=== PATIENT | female | born 1965 | race Caucasian/White ===

== ENCOUNTER 2021-12-17 04:12 | Outpatient (REF) | payer OTHER, SELFPAY ==
[2021-12-17 04:28] LABS: HCT 40.1 % (36.0-46.0); HGB 12.7 g/dL (11.2-15.7); MCH 28.9 pg (27.0-33.0); MCHC 31.7 % (32.0-36.0); MCV 91 fL (80-95); MPV 10.7 fL (8.0-11.0); Platelet Count 331 10^3/uL (130-400); RBC 4.39 10^6/uL (3.93-5.22); RDW 13.2 % (11.7-14.6); RDW-SD 44.9 fL; WBC 7.98 10^3/uL (4.4-10.8)
[2021-12-17 04:43] LABS: ALT 19 U/L (14-59); AST 14 U/L (15-37); Albumin 3.7 g/dL (3.4-5.0); Alkaline Phosphatase 73 U/L (46-116); Anion Gap 6.9 mmol/L (3-11); BUN 23 mg/dL (7-18); Bilirubin, Total 0.2 mg/dL (0.2-1.0); CO2 31.1 mmol/L (21.0-32.0); CREATININE 0.7 mg/dL (0.55-1.02); Calcium 9.4 mg/dL (8.5-10.1); Calculated LDL 141 mg/dL (<100); Chloride 103 mmol/L (98-107); Cholesterol 235 mg/dL (<200); Estimated GFR 100.81 (mL/min/1.73m2); Glucose 87 mg/dL (74-106); HDL Cholesterol 69 mg/dL (40-60); Potassium 4.4 mmol/L (3.5-5.1); Sodium 141 mmol/L (136-145); TSH 0.23 uIU/mL (0.36-3.74); Total Protein 7.2 g/dL (6.4-8.2); Triglyceride 128 mg/dL (<150)
== END 2021-12-17 04:13 | disposition home or self-care (01) ==
LOC: NCHCN 04:12
PROVIDERS: Visit Provider Registered Nurse
DX: Z00.00 Encounter for general adult medical examination without abnormal findings (principal)
CPT/HCPCS: 80053; 80061; 85027; 84443

== ENCOUNTER 2021-12-28 11:54 | Outpatient (REF) | payer OTHER, SELFPAY ==
--- NOTE | 2021-12-28 10:15 | PAPFT_PTH ---
PATIENT: Cherry Smyth LOC: [facility] U#:[id number] AGE/SX: 56/F ROOM: RE12/28/[address]: Ivonne Downs : 1965 BED: DIS: 12/28/2021 SPEC #: [id number] RECD: 12/28/21 17:48 STATUS: SHARAD REQ #: [id number] RAMON: 12/28/21 10:[address]: Ivonne Downs DEPT: [facility] Cytology RECD BY: Yuly Sanchez ENTERED: 12/28/21 17:48 SP TYPE: PAPFT DYLON DR: Unknown,Unknown Tissues: 1 - CX/ENDOCX FOR PAP SMEARS Procedures: PAP THIN PREP/[facility] Screening HPV DNA PROBE Comments: [id number]
== END 2021-12-28 11:55 | disposition home or self-care (01) ==
LOC: NCHCN 11:54
PROVIDERS: Visit Provider Registered Nurse
DX: Z12.4 Encounter for screening for malignant neoplasm of cervix (principal); Z11.51 Encounter for screening for human papillomavirus (HPV)
CPT/HCPCS: 88142; 87624

== ENCOUNTER 2022-06-08 15:30 | Outpatient (REF) | payer OTHER, SELFPAY ==
[2022-06-08 15:03] LABS: TSH 0.77 uIU/mL (0.36-3.74)
== END 2022-06-08 15:31 | disposition home or self-care (01) ==
LOC: NCHCN 15:30
PROVIDERS: Visit Provider Registered Nurse
DX: E03.9 Hypothyroidism, unspecified (principal); R73.09 Other abnormal glucose
CPT/HCPCS: 83036; 84443

== ENCOUNTER 2023-05-21 14:42 | Outpatient (REF) | payer OTHER, SELFPAY ==
--- OUTSIDE RECORDS SUMMARY | 2023-05-21 14:45 | XMS_ITS | CCD ---
Author Name Unknown Address [address] [place] [address] [phone] Organization Unknown Address [address] [place] [address] [id number] Care Team Providers Care Wharfmaster Name Role Phone LILLIANA SOUTH Attending Physician [phone] JOVITA WEST Er Physician 3 [phone] SKYLER Baum Registered Nurse [phone] Vital Signs Vital Sign Value Unit Date/Time Recent/Initial ? BMI (Body Mass Index) 28.17 kg/m^2 01/04/2022 15: 05 Initial VS Weight Measured 165 lbs 01/04/2022 15:05 Ini tial VS Height 64.17 in 01/04/2022 15:05 Initial VS BSA (Body Surface Area) 1.84 m^2 01/04/2022 1 5:05 Initial VS BP Systolic 125 mmHg 01/04/2022 15:05 Initial VS BP Diastolic 82 mmHg 01/04/2022 15:05 Initia l VS Respiratory Rate 18 bpm 01/04/2022 15:05 In itial VS Heart Rate 75 bpm 01/04/2022 15:05 Initial VS O2 % BldC Oximetry 100 % 01/04/2022 15:05 Initial VS Body Temperature 36.1 degrees 01/04/2022 15:05 In itial VS Respiratory Rate 16 bpm 01/04/2022 18:[address] Recent VS Heart Rate 70 bpm 01/04/2022 18:50 Most Rec ent VS O2 % BldC Oximetry 100 % 01/04/2022 18:50 Most Recent VS Allergies Allergy Code Allergy Type Reaction Status No Known Drug Allergies 0 No known drug allergies Active Procedures Unknown or Not Available. History of Immunizations Unknown or Not Available. Problems Unknown or Not Available. Results Unknown or Not Available. Active Medications Medications Administered During Visit Medication Dose Units Frequency Route Date/Time of Last Dose CEPHALEXIN CAPSULE: 500MG 500 MG X1 PO 01/04/2022 18:55 Encounters Encounter Diagnosis Diagnosis Code Start Date Follicular disorder, unspecified [id number] 01/04/2022 Social History Unknown or Not Available. Patient Decision Aids Unknown or Not Available. Discharge Instructions You were admitted to [facility] on 01/04/2022 14:48 with a principal diagnosis of Follicular disorder, unspecified You were discharged from [facility] on 01/04/2022 19:07 Should you have any questions prior to discharge, please contact a member of your healthcare team. If you have left the hospital and have any questions, please contact your primary care physician. Chief Complaint and Reason For Visit Chief Complaint Date of Onset LUMPS UNDER ARMS Function Status Unknown or Not Available. Plan of Care Unknown or Not Available. Referral/Transition of Care Unknown or Not Available.
--- OUTSIDE RECORDS SUMMARY | 2023-05-21 14:45 | XMS_ITS | CCD ---
Author Name Unknown Address [address] [place] [address] [phone] Organization Unknown Address [address] [place], [place] [id number] Care Team Providers Care Forensic Computer Examiner Name Role Phone FLASH PINZON Attending Physician [phone] FLASH PINZON Rounding (Secondary) Physician [phone] Vital Signs Unknown or Not Available. Allergies Allergy Code Allergy Type Reaction Status No Known Drug Allergies 0 No known drug allergies Active Procedures Unknown or Not Available. History of Immunizations Unknown or Not Available. Problems Unknown or Not Available. Results Unknown or Not Available. Active Medications Medication Code Dose Units Frequency Route Modificatio n Start Date/Time Keflex 500MG Oral Capsule 344315 1 CAPSULE FOUR TIMES A DAY ORAL 01/04/2022 18:50 Prescription Detail TAKE 1 CAPSULE ORAL FOUR TIMES A DAY Medications Administered During Visit Unknown or Not Available. Encounters Encounter Diagnosis Diagnosis Code Start Date Displacement of intrauterine contraceptive device, initial encounter [id number] 01/25/2022 Social History Unknown or Not Available. Patient Decision Aids Unknown or Not Available. Discharge Instructions You were admitted to [facility] on 01/25/2022 11:22 with a principal diagnosis of Displacement of intrauterine contraceptive device, initial encounter You were discharged from [facility] on 01/25/2022 11:25 Should you have any questions prior to discharge, please contact a member of your healthcare team. If you have left the hospital and have any questions, please contact your primary care physician. Chief Complaint and Reason For Visit Unknown or Not Available. Function Status Unknown or Not Available. Plan of Care Unknown or Not Available. Referral/Transition of Care Unknown or Not Available.
--- OUTSIDE RECORDS SUMMARY | 2023-05-21 14:45 | XMS_ITS | CCD ---
Author Name Unknown Address [address] [place] [address] [phone] Organization Unknown Address [address] [place] [address] [phone] Care Team Providers Care Electron Microprobe Operator Name Role Phone FLASH PINZON Attending Physician [phone] Vital Signs Unknown or Not Available. Allergies Allergy Code Allergy Type Reaction Status No Known Drug Allergies 0 No known drug allergies Active Procedures Unknown or Not Available. History of Immunizations Unknown or Not Available. Problems Unknown or Not Available. Results Unknown or Not Available. Active Medications Medication Code Dose Units Frequency Route Modificatio n Start Date/Time Keflex 500MG Oral Capsule 317061 1 CAPSULE FOUR TIMES A DAY ORAL 01/04/2022 18:50 Prescription Detail TAKE 1 CAPSULE ORAL FOUR TIMES A DAY Medications Administered During Visit Unknown or Not Available. Encounters Encounter Diagnosis Diagnosis Code Start Date Leiomyoma of uterus, unspecified D259 01/11/2022 Social History Unknown or Not Available. Patient Decision Aids Unknown or Not Available. Discharge Instructions You were admitted to [facility] on 01/11/2022 10:31 with a principal diagnosis of Leiomyoma of uterus, unspecified You were discharged from [facility] on 01/11/2022 10:31 Should you have any questions prior to discharge, please contact a member of your healthcare team. If you have left the hospital and have any questions, please contact your primary care physician. Chief Complaint and Reason For Visit Chief Complaint Date of Onset PELVIC PAIN, IUD PLACEMENT Function Status Unknown or Not Available. Plan of Care Unknown or Not Available. Referral/Transition of Care Unknown or Not Available.
[2023-05-21 22:25] LABS: Hemoglobin A1C 6.2 % (<5.7)
[2023-05-21 22:35] LABS: ALT 19 U/L (14-59); AST 15 U/L (15-37); Albumin 3.5 g/dL (3.4-5.0); Alkaline Phosphatase 85 U/L (46-116); Anion Gap 6.3 mmol/L (3-11); BUN 19 mg/dL (7-18); Bilirubin, Total 0.3 mg/dL (0.2-1.0); CO2 31.7 mmol/L (21.0-32.0); CREATININE 0.8 mg/dL (0.55-1.02); Calculated LDL 164 mg/dL (<100); Chloride 103 mmol/L (98-107); Cholesterol 251 mg/dL (<200); Estimated GFR 84.82 (mL/min/1.73m2); Glucose 109 mg/dL (74-106); HDL Cholesterol 68 mg/dL (40-60); Potassium 4.2 mmol/L (3.5-5.1); Sodium 141 mmol/L (136-145); TSH (W/Ref FT4) 0.59 uIU/mL (0.36-3.74); Triglyceride 97 mg/dL (<150)
== END 2023-05-21 14:43 | disposition home or self-care (01) ==
LOC: NCHCN 14:42
PROVIDERS: Visit Provider Registered Nurse
DX: E03.9 Hypothyroidism, unspecified (principal); R73.03 Prediabetes; E78.89 Other lipoprotein metabolism disorders
CPT/HCPCS: 80053; 80061; 83036; 84443

== ENCOUNTER 2024-08-22 13:49 | Outpatient (REF) | payer SELFPAY ==
[2024-08-22 14:39] LABS: HCT 42.5 % (36.0-46.0); HGB 13.6 g/dL (11.2-15.7); MCH 29.1 pg (27.0-33.0); MCV 91 fL (80-95); MPV 10.6 fL (8.0-11.0); Platelet Count 333 10^3/uL (130-400); RBC 4.68 10^6/uL (3.93-5.22); RDW 13.7 % (11.7-14.6); RDW-SD 45.6 fL; WBC 4.56 10^3/uL (4.4-10.8)
[2024-08-22 15:13] LABS: ALT 24 U/L (14-59); AST 18 U/L (15-37); Albumin 4.1 g/dL (3.4-5.0); Alkaline Phosphatase 84 U/L (46-116); Anion Gap 5.1 mmol/L (3-11); BUN 26 mg/dL (7-18); Bilirubin, Total 0.4 mg/dL (0.2-1.0); CO2 30.9 mmol/L (21.0-32.0); CREATININE 0.7 mg/dL (0.55-1.02); Calcium 9.8 mg/dL (8.5-10.1); Calculated LDL 191 mg/dL (<100); Chloride 105 mmol/L (98-107); Cholesterol 290 mg/dL (<200); Estimated GFR 98.95 (mL/min/1.73m2); Glucose 102 mg/dL (74-106); HDL Cholesterol 91 mg/dL (>or=50); Potassium 4.5 mmol/L (3.5-5.1); Sodium 141 mmol/L (136-145); TSH 0.49 uIU/mL (0.36-3.74); Total Protein 7.7 g/dL (6.4-8.2); Triglyceride 44 mg/dL (<150)
== END 2024-08-22 13:50 | disposition home or self-care (01) ==
LOC: NCHCN 13:49
PROVIDERS: Visit Provider Internal Medicine
DX: E78.5 Hyperlipidemia, unspecified (principal); E03.9 Hypothyroidism, unspecified; R10.13 Epigastric pain
CPT/HCPCS: 80053; 80061; 85027; 84443